=== PATIENT | female | born 2000 | race Caucasian/White ===

== ENCOUNTER → 2021-01-28 | Outpatient (CLI) | payer OTHER | LOC: COL.RAD 07:46 | DX: M51.17 Intervertebral disc disorders with radiculopathy, lumbosacral region (principal) ==

== ENCOUNTER → 2021-03-08 | Outpatient (CLI) | payer OTHER | LOC: COL.RAD 13:43 | DX: N93.9 Abnormal uterine and vaginal bleeding, unspecified (principal); Z97.5 Presence of (intrauterine) contraceptive device ==